=== PATIENT | male | born 1990 | race Caucasian/White ===

== ENCOUNTER 2019-05-03 07:52 | Emergency (ER) | payer BC ==
[2019-05-03 08:04] VITALS: BP 153/92; PULSE 74; RESP 16; TEMP 98.4
--- NOTE | 2019-05-03 08:29 | ED ---
General Adult HPI - General Chief complaint: Skin/Abscess/Foreign Body Stated complaint: abscess under both arms Time Seen by Provider: 05/03/19 08:05 Source: patient, RN notes reviewed Mode of arrival: EMS Limitations: no limitations - History of Present Illness Initial comments: Patient is a pleasant 28-year-old male presenting to the emergency department with concern for infections under his bilateral axilla. Patient has history of this previously associated with hidradenitis. Patient complains of discomfort. Patient states there was a little bit of bleeding. Patient states previously has been given antibiotics for this that this helped. No fevers. No other areas of involvement. Patient states there is no involvement near the waist, th ere is some blood that had dripped on there. - Related Data Previous Rx's Medication Instructions Recorded Sulfamethox-Tmp 800-160Mg [Bactrim 2 each PO Q12HR #40 tab 05/03/19 DS 800-160 mg] Allergies Allergy/AdvReac Type Severity Reaction Status Date / Time No Known Allergies Allergy Verified 05/03/19 08:13 Review of Systems ROS Statement: Those systems with pertinent positive or pertinent negative responses have been documented in the HPI. ROS Other: All systems not noted in ROS Statement are negative. Constitutional: Denies: fever Eyes: Denies: eye pain ENT: Denies: ear pain Respiratory: Denies: cough Cardiovascular: Denies: chest pain Endocrine: Denies: fatigue Gastrointestinal: Denies: abdominal pain Genitourinary: Denies: dysuria Musculoskeletal: Denies: back pain Skin: Reports: as per HPI Neurological: Denies: weakness Past Medical History Past Medical History: No Reported History History of Any Multi-Drug Resistant Organisms: None Reported Past Surgical History: No Surgical Hx Reported Past Psychological History: No Psychological Hx Reported Smoking Status: Light tobacco smoker Past Alcohol Use History: Occasional Past Drug Use History: None Reported General Exam Limitations: no limitations General appearance: alert, in no apparent distress Head exam: Present: normocephalic Eye exam: Present: normal appearance ENT exam: Present: normal exam Neck exam: Present: normal inspection Respiratory exam: Present: normal lung sounds bilaterally Cardiovascular Exam: Present: regular rate, normal rhythm GI/Abdominal exam: Present: soft. Absent: tenderness Extremities exam: Present: other (Bilateral axilla with chronic skin discoloration. No erythema. Some minimal areas of swelling. Mild tenderness. No warmth. No drainable abscess visualized.) Neurological exam: Present: alert Psychiatric exam: Present: normal affect, normal mood Skin exam: Present: other (Bilateral axilla discoloration and mild swelling) Course Vital Signs 05/03/19 07:58 Temperature 98.4 F Pulse Rate 74 Respiratory 16 Rate Blood Pressure 153/92 O2 Sat by Pulse 99 Oximetry Disposition Clinical Impression: Hidradenitis suppurativa Disposition: HOME SELF-CARE Condition: Stable Instructions (If sedation given, give patient instructions): Hidradenitis Suppurativa (ED) Additional Instructions: Keep areas clean and dry. Please follow-up with primary care physician or surgeon or both in the next few days for recheck. Return for increased discomfort, redness, fevers, enlarging pocket that may need drainage, worsening symptoms or other concerns. Your prescription has been sent to [facility]. Prescriptions: Sulfamethox-Tmp 800-160Mg [Bactrim DS 800-160 mg] 2 each PO Q12HR #40 tab Is patient prescribed a controlled substance at d/c from ED?: No Referrals: Margarito Spencer MD [Primary Care Provider] - 1-2 days Time of Disposition: 08:29
== END 2019-05-03 09:02 | disposition home or self-care (01) ==
LOC: EC 07:52
DX: L73.2 Hidradenitis suppurativa (principal); F17.200 Nicotine dependence, unspecified, uncomplicated
CPT/HCPCS: 99283

== ENCOUNTER → 2019-05-26 | Outpatient (CLI) | payer BC ==
[2019-05-26 15:11] LABS: Basophils # (A) 0.1 k/uL (0-0.2); Basophils % (A) 1 %; Eosinophils # (A) 0.2 k/uL (0-0.7); Eosinophils % (A) 3 %; HCT 47.4 % (39.0-53.0); HGB 14.6 gm/dL (13.0-17.5); Lymphocytes # (A) 1.8 k/uL (1.0-4.8); Lymphocytes % (A) 20 %; MCH 27.1 pg (25.0-35.0); MCHC 30.8 g/dL (31.0-37.0); MCV 88.1 fL (80.0-100.0); Mean Platelet Volume 6.5; Monocytes # (A) 0.4 k/uL (0-1.0); Monocytes % (A) 5 %; Neutrophils # (A) 6.2 k/uL (1.3-7.7); Neutrophils % (A) 69 %; Platelet Count 300 k/uL (150-450); RBC 5.38 m/uL (4.30-5.90); RDW 13.7 % (11.5-15.5)
--- NOTE | 2019-05-26 15:16 | XR ---
EXAMINATION TYPE: XR chest 2V DATE OF EXAM: 05/26/2019 COMPARISON: NONE HISTORY: Hidradenitis suppurativa per order. TECHNIQUE: Frontal and lateral views of the chest are obtained. FINDINGS: Low lung volumes with elevated left hemidiaphragm. Slight suboptimal due to large body habi tus. There is no focal air space opacity, pleural effusion, or pneumothorax seen. The cardiac silho uette size is enlarged. The osseous structures are intact. IMPRESSION: Cardiomegaly without acute pulmonary process.
[2019-05-26 18:30] LABS: LDL Cholesterol, Direct 112.1 mg/dL (0.0-129.0)
[2019-05-26 18:34] LABS: African American GFR (CKD) 140.9 (60.0-200.0); Albumin 4.6 g/dL (3.80-4.90); Albumin/Globulin Ratio 1.53 (1.60-3.17); Anion Gap 9.8 mmol/L (4.00-12.00); BUN/Creat Ratio 13.75 Ratio (12.00-20.00); Bilirubin, Conjugated 0.2 mg/dL (0.20-0.40); Bilirubin,Unconjugated 0.3 mg/dL; Calcium 9.4 mg/dL (8.7-10.3); Carbon Dioxide 27.2 mmol/L (21.6-31.8); Chol/HDL Ratio 3.65; LDL Cholesterol,Calculated 91.8 mg/dL (0.0-131.0); Potassium 3.8 mmol/L (3.5-5.5); Total Bilirubin 0.5 mg/dL (0.2-1.2); Total Protein 7.6 g/dL (6.2-8.2); VLDL Calculation 22.2 mg/dL (5.00-40.00)
[2019-05-26 19:44] LABS: Hepatitis B Surface AB- Quant 4.5 mIU/mL; Hepatitis B Surface Antibody Non-Reactive (Non-Reactive); Hepatitis B Surface Antigen Non-Reactive (Non-Reactive); Hepatitis C IgG Antibody Non-Reactive (Non-Reactive)
[2019-05-26 22:44] LABS: Hemoglobin A1C 5.2 % (4.0-6.0)
== END ==
LOC: LABWHC1 13:48
PROVIDERS: ATTEND Dermatology Procedural Dermatology
DX: L73.2 Hidradenitis suppurativa (principal); L83 Acanthosis nigricans; I51.7 Cardiomegaly
CPT/HCPCS: 36415; 71046; 80048; 80061; 80076; 83036; 83721; 85025; 86704; 86706; 86803; 87340

== ENCOUNTER 2021-10-06 04:00 | Emergency (ER) | payer BC, OTHER ==
[2021-10-06 04:08] VITALS: BP 139/83; PULSE 84; RESP 22; TEMP 98.2
--- NOTE | 2021-10-06 05:55 | ED ---
Back Pain HPI - General Chief Complaint: Back Pain/Injury Stated Complaint: Back Pain Time Seen by Provider: 10/06/21 04:12 Source: patient, family, RN notes reviewed Limitations: no limitations - History of Present Illness Initial Comments: This is a 30-year-old male with history of sciatica coming in with nontraumatic back pain. Back pain was worse last night and even worse this morning unable to get out of bed. Back pain is right-sided his back severe he had taken [place] and a Motrin prior to arrival states it did help initially but now seems to be helping pain is improved was able to ambulate. No loss of bowel or bladder no fevers no other complaints MD Complaint: back pain -: hour(s) Similar Symptoms Previously: Yes Place: home Radiation: none Severity: moderate Severity scale (1-10): 7 Quality: sharp, aching Consistency: constant, other (Improving) Improves With: immobilization Worsens With: movement, sitting upright, walking Context: unknown Associated Symptoms: denies other symptoms - Related Data Previous Rx's Medication Instructions Recorded Sulfamethox-Tmp 800-160Mg [Bactrim 2 each PO Q12HR #40 tab 05/03/19 DS 800-160 mg] Allergies Allergy/AdvReac Type Severity Reaction Status Date / Time No Known Allergies Allergy Verified 10/06/21 04:08 Review of Systems ROS Statement: Those systems with pertinent positive or pertinent negative responses have been documented in the HPI. ROS Other: All systems not noted in ROS Statement are negative. Past Medical History Past Medical History: No Reported History History of Any Multi-Drug Resistant Organisms: None Reported Past Surgical History: No Surgical Hx Reported Past Psychological History: No Psychological Hx Reported Smoking Status: Current every day smoker Past Alcohol Use History: Occasional Past Drug Use History: Marijuana General Exam Limitations: no limitations General appearance: alert, in no apparent distress Head exam: Present: atraumatic, normocephalic, normal inspection Eye exam: Present: normal appearance, PERRL, EOMI. Absent: scleral icterus, conjunctival injection, periorbital swelling ENT exam: Present: normal exam, mucous membranes moist Neck exam: Present: normal inspection. Absent: tenderness, meningismus, lymphadenopathy Respiratory exam: Present: normal lung sounds bilaterally. Absent: respiratory distress, wheezes, rales, rhonchi, stridor Cardiovascular Exam: Present: regular rate, normal rhythm, normal heart sounds. Absent: systolic murmur, diastolic murmur, rubs, gallop, clicks GI/Abdominal exam: Present: soft, normal bowel sounds. Absent: distended, tenderness, guarding, rebound, rigid Extremities exam: Present: normal inspection, full ROM, normal capillary refill. Absent: tenderness, pedal edema, joint swelling, calf tenderness Back exam: Present: normal inspection Neurological exam: Present: alert, oriented X3, CN II-XII intact Psychiatric exam: Present: normal affect, normal mood Skin exam: Present: warm, dry, intact, normal color. Absent: rash Course Vital Signs 10/06/21 04:05 Temperature 98.2 F Pulse Rate 84 Respiratory 22 Rate Blood Pressure 139/83 O2 Sat by Pulse 100 Oximetry - Reevaluation(s) Reevaluation #1: 10/06/21 06:11 Medical record is reviewed Reevaluation #2: 10/06/21 06:11 Patient symptoms continue to improve here in the ER Reevaluation #3: 10/06/21 06:11 Patient informed results and questions answered Medical Decision Making - Medical Decision Making 30 male to the emergency department with acute on chronic back pain. Back pain is now resolved here in the ER patient continues to feel improved is able to amply without significant difficulty no neurological complaints and patient can be discharged home - Radiology Data Radiology results: report reviewed (X-ray lumbar spine negative for traumatic or acute disease), image reviewed Disposition Clinical Impression: Strain of lumbar region, Sciatica Disposition: HOME SELF-CARE Condition: Good Instructions (If sedation given, give patient instructions): Acute Low Back Pain (ED) Is patient prescribed a controlled substance at d/c from ED?: No Referrals: None,Stated [Primary Care Provider] - 1-2 days
[2021-10-06] MEDS: CYCLOBENZAPRINE 10 MG TAB PO STA (06:21)
[2021-10-06] MEDS: Acetaminophen-Codeine 300-30mg TAB PO STA (06:21)
[2021-10-06] MEDS: IBUPROFEN 600 MG TAB PO STA (06:21)
[2021-10-06] MEDS: IBUPROFEN 600 MG STARTER PACK 4 TAB BTL PO STA (06:22)
[2021-10-06] MEDS: ACET/COD 300 MG/30 MG STARTER PACK 6 TAB BTL PO STA (06:22)
[2021-10-06] MEDS: CYCLOBENZAPRINE 10MG STARTER 3 TAB BTL PO STA (06:22)
--- NOTE | 2021-10-06 06:50 | XR ---
EXAM: XR Lumbosacral Spine, 2 or 3 Views CLINICAL HISTORY: ITS.REASON XR Reason: pain TECHNIQUE: Frontal and lateral views of the lumbar spine and sacrum. COMPARISON: No relevant prior studies available. FINDINGS: Vertebrae: No fracture or malalignment. Vertebral body heights are preserved. There are mild facet hypertrophic changes best appreciated at the L5-S1 level. Sacrum/coccyx: The sacroiliac joints are unremarkable. No acute fracture. Disc spaces: The disc spaces are preserved. Soft tissues: Unremarkable. IMPRESSION: Mild facet degenerative changes in the lower lumbar spine. Otherwise, unremarkable L-spine x-ray series.
== END 2021-10-06 06:44 | disposition home or self-care (01) ==
LOC: EC 04:00
DX: S39.012A Strain of muscle, fascia and tendon of lower back, initial encounter (principal); M54.30 Sciatica, unspecified side; F17.200 Nicotine dependence, unspecified, uncomplicated; Z72.89 Other problems related to lifestyle; F12.90 Cannabis use, unspecified, uncomplicated
CPT/HCPCS: 72100; 99283

== ENCOUNTER 2022-11-30 19:07 | Emergency (ER) | payer SELFPAY ==
[2022-11-30 19:12] VITALS: BP 133/71; PULSE 72; RESP 16; TEMP 99.2
[2022-11-30] MEDS ORDERED: SODIUM CHLORIDE 0.9% 1,000 ML IV ONE (19:23)
[2022-11-30] MEDS ORDERED: KETOROLAC 15 MG/ML 1 ML VIAL IM STA (19:24)
[2022-11-30 20:27] LABS: Basophils % (A) 1 %; Eosinophils # (A) 0.2 k/uL (0-0.7); Eosinophils % (A) 4 %; HGB 12.5 gm/dL (13.0-17.5); Lymphocytes # (A) 1.5 k/uL (1.0-4.8); Lymphocytes % (A) 33 %; MCH 30.5 pg (25.0-35.0); MCHC 34.8 g/dL (31.0-37.0); MCV 87.6 fL (80.0-100.0); Monocytes # (A) 0.4 k/uL (0-1.0); Monocytes % (A) 8 %; Neutrophils # (A) 2.3 k/uL (1.3-7.7); Neutrophils % (A) 52 %; Platelet Count 187 k/uL (150-450); RBC 4.11 m/uL (4.30-5.90); RDW 12.8 % (11.5-15.5); WBC 4.5 k/uL (3.8-10.6)
[2022-11-30 20:36] LABS: ALT 17 U/L (4-49); AST 25 U/L (17-59); African American GFR (CKD) >90 (>60 ml/min/1.73 sqM); Albumin 3.8 g/dL (3.5-5.0); Alkaline Phosphatase 96 U/L (38-126); Anion Gap 8 mmol/L; Blood Urea Nitrogen 12 mg/dL (9-20); Calcium 8.4 mg/dL (8.4-10.2); Carbon Dioxide 28 mmol/L (22-30); Chloride 102 mmol/L (98-107); Glucose 90 mg/dL (74-99); Non-African American GFR(CKD) >90 (>60 ml/min/1.73 sqM); Potassium 3.5 mmol/L (3.5-5.1); Sodium 138 mmol/L (137-145); Total Bilirubin 0.4 mg/dL (0.2-1.3); Total Protein 7.2 g/dL (6.3-8.2)
--- NOTE | 2022-11-30 20:36 | CT ---
EXAMINATION TYPE: CT abdomen pelvis wo con CT DLP: 1748.4 mGycm, Automated exposure control for dose reduction was used. DATE OF EXAM: 11/30/2022 8:23 PM COMPARISON: Lumbar spine radiographs 10/06/2021 CLINICAL INDICATION:Male, 32 years old with history of urinary retention; Urinary rentention, hematur ia x 2 days. TECHNIQUE: Axial CT of the abdomen and pelvis. Sagittal and coronal reformats were created on a [email or web address] workstation. Contrast used: None. Oral contrast used: without Oral Contrast FINDINGS: LOWER CHEST: Unremarkable ABDOMEN LIVER: Unremarkable GALLBLADDER AND BILE DUCTS: Normal. PANCREAS: Unremarkable. SPLEEN: Splenomegaly, spleen measures 17.9 cm. Small accessory spleen. ADRENAL GLANDS: Unremarkable. KIDNEYS AND URETERS: No evidence of hydronephrosis or renal calculus. The ureters are unremarkable. PELVIS BLADDER: Underdistended, there is circumferential wall thickening and perivesicular fat stranding. REPRODUCTIVE: Unremarkable. ABDOMEN & PELVIS STOMACH AND BOWEL: Stomach and duodenum are unremarkable. No evidence of bowel obstruction. Appendix is normal. PERITONEUM: No evidence of pneumoperitoneum or free fluid. VASCULATURE: No evidence of aortic aneurysm. MUSCULOSKELETAL: No acute osseous abnormalities. Posterior osteophyte of L4-L5 results in up to mild central canal stenosis. LYMPH NODES: Bilateral inguinal adenopathy reference lymph node on the right measures at least 2.0 x 2.8 cm (series 202, image [id number]). SOFT TISSUE/ABDOMINAL WALL: Focal subcutaneous fat stranding without definable fluid collection is no jessi in the anterior pubic soft tissues (series 201, image 141 and series 202, image 41). Superficial skin thickening is noted. Fat stranding does not extend beyond the rectus abdominis muscles. No subcu taneous emphysema. IMPRESSION: 1. Diffuse inflammatory changes of the anterior pubic soft tissues, concerning for cellulitis. No de fined fluid collections to suggest abscess formation within the limits of a noncontrast exam. 2. Bilateral inguinal adenopathy, likely reactive to #1. 3. Splenomegaly. 4. Circumferential bladder wall thickening with perivesicular inflammation, correlate with urinalysis to exclude acute cystitis.
[2022-11-30 21:03] LABS: Appearance,Urine Cloudy (Clear); Bacteria,Urine Rare /hpf; Bilirubin,Urine Negative (Negative); Blood,Urine Large (Negative); Color,Urine Yellow; Glucose,Urine (UA) Negative (Negative); Ketones,Urine Negative (Negative); Leukocyte Esterase,Urine Large (Negative); Mucus,Urine Occasional /hpf; Nitrite,Urine Negative (Negative); Protein,Urine 1+ (Negative); RBC,Urine 11 /hpf (0-5); Specific Gravity,Urine 1.013 (1.001-1.035); Squamous Epithelial Cell,Urine <1 /hpf (0-4); WBC,Urine >182 /hpf (0-5)
--- NOTE | 2022-11-30 21:40 | ED ---
General Adult HPI - General Chief complaint: Urogenital Stated complaint: Blood in urine Time Seen by Provider: 11/30/22 19:15 Source: patient, RN notes reviewed Mode of arrival: ambulatory Limitations: no limitations - History of Present Illness Initial comments: 32-year-old male with no significant past medical history presents to the emergency department with a chief complaint of urinary retention. Patient reports that he has not had a true urinary void in 2 days. Patient reports that he has only been able to "dribble. " He does report seeing some clots in his urine today. He denies any fevers, fatigue, test pain, palpitations, abdominal pain, flank pain. He denies any known new recent sexual contacts. - Related Data Previous Rx's Medication Instructions Recorded Sulfamethox-Tmp 800-160Mg [Bactrim 2 each PO Q12HR #40 tab 05/03/19 DS 800-160 mg] Ciprofloxacin HCl [Cipro] 500 mg PO Q12HR #20 tablet 11/30/22 Allergies Allergy/AdvReac Type Severity Reaction Status Date / Time No Known Allergies Allergy Verified 10/06/21 04:08 Review of Systems ROS Statement: Those systems with pertinent positive or pertinent negative responses have been documented in the HPI. ROS Other: All systems not noted in ROS Statement are negative. Past Medical History Past Medical History: No Reported History History of Any Multi-Drug Resistant Organisms: None Reported Past Surgical History: No Surgical Hx Reported Additional Past Surgical History / Comment(s): skin infection Past Psychological History: No Psychological Hx Reported Smoking Status: Current every day smoker Past Alcohol Use History: Occasional Past Drug Use History: Marijuana General Exam Limitations: no limitations General appearance: alert, in no apparent distress Head exam: Present: atraumatic, normocephalic, normal inspection Eye exam: Present: normal appearance, PERRL, EOMI. Absent: scleral icterus, conjunctival injection, periorbital swelling ENT exam: Present: normal exam, mucous membranes moist Neck exam: Present: normal inspection. Absent: tenderness, meningismus, lymphadenopathy Respiratory exam: Present: normal lung sounds bilaterally. Absent: respiratory distress, wheezes, rales, rhonchi, stridor Cardiovascular Exam: Present: regular rate, normal rhythm, normal heart sounds. Absent: systolic murmur, diastolic murmur, rubs, gallop, clicks GI/Abdominal exam: Present: soft, normal bowel sounds. Absent: distended, tenderness, guarding, rebound, rigid Extremities exam: Present: normal inspection, full ROM, normal capillary refill. Absent: tenderness, pedal edema, joint swelling, calf tenderness Back exam: Present: normal inspection Neurological exam: Present: alert, oriented X3, CN II-XII intact Psychiatric exam: Present: normal affect, normal mood Skin exam: Present: warm, dry, intact, normal color. Absent: rash Course Vital Signs 11/30/22 19:08 Temperature 99.2 F Pulse Rate 72 Respiratory 16 Rate Blood Pressure 133/71 O2 Sat by Pulse 99 Oximetry Medical Decision Making - Medical Decision Making Was pt. sent in by a medical professional or institution (, [facility], FINANCIAL ADVISER, urgent care, hospital, or longterm...) When possible be specific @ -[No] Did you speak to anyone other than the patient for history (EMS, parent, family, police, friend...)? What history was obtained from this source @ -[No] Did you review nursing and triage notes (agree or disagree)? Why? @ -[I reviewed and agree with nursing and triage notes] Were old charts reviewed (outside hosp., previous admission, EMS record, old EKG, old radiological studies, urgent care reports/EKG's, longterm records)? Report findings @ -[No old charts were reviewed] Differential Diagnosis (chest pain, altered mental status, abdominal pain women, abdominal pain men, vaginal bleeding, weakness, fever, dyspnea, syncope, headache, dizziness, GI bleed, back pain, seizure, CVA, palpatations, mental health, musculoskeletal)? @ -[not applicable] EKG interpreted by me (3pts min.). @ -[As above] X-rays interpreted by me (1pt min.). @ -[None done] CT interpreted by me (1pt min.). @ -[None done] U/S interpreted by me (1pt. min.). @ -[None done] What testing was considered but not performed or refused? (CT, X-rays, U/S, labs)? Why? @ -[None] What meds were considered but not given or refused? Why? @ -[None] Did you discuss the management of the patient with other professionals (professionals i.e. , PA, FINANCIAL ADVISER, lab, RT, psych nurse, manager social work, ultrasound coordinator, teacher, airline pilot/first officer, casework specialist)? Give summary @ -[No] Was smoking cessation discussed for >3mins.? @ -[No] Was critical care preformed (if so, how long)? @ -[No] Were there social determinants of health that impacted care today? How? (Homelessness, low income, unemployed, alcoholism, drug addiction, transportation, low edu. Level, literacy, decrease access to med. care, skilled nursing, rehab)? @ -[No] Was there de-escalation of care discussed even if they declined (Discuss DNR or withdrawal of care, Hospice)? DNR status @ -[No] What co-morbidities impacted this encounter? (DM, HTN, Smoking, COPD, CAD, Cancer, CVA, ARF, Chemo, Hep., AIDS, mental health diagnosis, sleep apnea, morbid obesity)? @ -[None] Was patient admitted / discharged? Hospital course, mention meds given and route, prescriptions, significant lab abnormalities, going to OR and other pertinent info. @ -Discharged. This is a 32-year-old male who presents the emergency department with urinary retention. Patient had a thorough history and physical exam performed physical exam essentially unremarkable. Heart rate regular rate and rhythm, lungs clear to auscultation bilaterally abdomen is soft and non- tender. He should had lab work and imaging performed: She reports diffuse inflammatory changes to the anterior pubic soft tissues with bilateral inguinal adenopathy There is circumferential bladder wall thickening and perivesicular inflammation Labs remarkable for WBC 4.5, hemoglobin 12.5 BMP unremarkable BUN 12, creatinine 0.65, Urinalysis reveals 1+ protein, large amount of blood, large amount of leukocyte Estrace, greater than 182 wbc's white blood cell clumps I discussed the results in detail with the patient verbalized understanding and all questions were addressed. Return precautions were discussed at length. Patient was discharged in stable condition. She was encouraged to follow up with her PCP in 1-2 days. Comes with CINDY Coleman who agrees with plan of care Undiagnosed new problem with uncertain prognosis? @ -[No] Drug Therapy requiring intensive monitoring for toxicity (Heparin, Nitro, Insulin, Cardizem)? @ -[No] Were any procedures done? @ -[No] Diagnosis/symptom? @ -Cystitis Acute, or Chronic, or Acute on Chronic? @ -acute Uncomplicated (without systemic symptoms) or Complicated (systemic symptoms)? @ -uncomplicated Side effects of treatment? @ -[No] Exacerbation, Progression, or Severe Exacerbation? @ -[No] Poses a threat to life or bodily function? How? (Chest pain, [place], [place], pneumonia, PE, COPD, DKA, ARF, appy, cholecystitis, CVA, Diverticulitis, Homicidal, Suicidal, threat to staff... and all critical care pts) @ -low likelihood - Lab Data Result diagrams: 11/30/22 20:07 11/30/22 20:07 Lab Results 11/30/22 11/30/22 11/30/22 Range/Units 20: 20:07 20:37 WBC 4.5 (3.8-10.6) k/uL RBC 4.11 L (4.30-5.90) m/uL Hgb 12.5 L (13.0-17.5) gm/dL Hct 36.0 L (39.0-53.0) % MCV 87.6 (80.0-100.0) fL MCH 30.5 (25.0-35.0) pg MCHC 34.8 (31.0-37.0) g/dL RDW 12.8 (11.5-15.5) % Plt Count 187 (150-450) k/uL MPV 8.0 Neutrophils % 52 % Lymphocytes % 33 % Monocytes % 8 % Eosinophils % 4 % Basophils % 1 % Neutrophils # 2.3 (1.3-7.7) k/uL Lymphocytes # 1.5 (1.0-4.8) k/uL Monocytes # 0.4 (0-1.0) k/uL Eosinophils # 0.2 (0-0.7) k/uL Basophils # 0.0 (0-0.2) k/uL Sodium 138 (137-145) mmol/L Potassium 3.5 (3.5-5.1) mmol/L Chloride 102 (98-107) mmol/L Carbon Dioxide 28 (22-30) mmol/L Anion Gap 8 mmol/L BUN 12 (9-20) mg/dL Creatinine 0.65 L (0.66-1.25) mg/dL Est GFR (CKD-EPI)AfAm >90 (>60 ml/min/1.73 sqM) Est GFR (CKD-EPI)NonAf >90 (>60 ml/min/1.73 sqM) Glucose 90 (74-99) mg/dL Calcium 8.4 (8.4-10.2) mg/dL Total Bilirubin 0.4 (0.2-1.3) mg/dL AST 25 (17-59) U/L ALT 17 (4-49) U/L Alkaline Phosphatase 96 (38-126) U/L Total Protein 7.2 (6.3-8.2) g/dL Albumin 3.8 (3.5-5.0) g/dL Urine Color Yellow Urine Appearance Cloudy (Clear) Urine pH 6.0 (5.0-8.0) Ur Specific [place] 1.013 (1.001-1.035) Urine Protein 1+ H (Negative) Urine Glucose (UA) Negative (Negative) Urine Ketones Negative (Negative) Urine Blood Large H (Negative) Urine Nitrite Negative (Negative) Urine Bilirubin Negative (Negative) Urine Urobilinogen 3.0 (<2.0) mg/dL Ur Leukocyte Esterase Large H (Negative) Urine RBC 11 H (0-5) /hpf Urine WBC >182 H (0-5) /hpf Urine WBC Clumps Rare H (None) /hpf Ur Squamous Epith Cells <1 (0-4) /hpf Urine Bacteria Rare H (None) /hpf Urine Mucus Occasional H (None) /hpf Disposition Clinical Impression: Cystitis Disposition: HOME SELF-CARE Instructions (If sedation given, give patient instructions): Urinary Tract Infection in Men (ED) Additional Instructions: Please return to the nearest emergency department symptoms worsen or persist Prescriptions: Ciprofloxacin HCl [Cipro] 500 mg PO Q12HR #20 tablet Is patient prescribed a controlled substance at d/c from ED?: No Referrals: None,Stated [Primary Care Provider] - 1-2 days Mau Ross MD [STAFF PHYSICIAN] - 1-2 days Time of Disposition: 21:39
== END 2022-11-30 21:49 | disposition home or self-care (01) ==
LOC: EC 19:07
DX: N30.91 Cystitis, unspecified with hematuria (principal); F17.200 Nicotine dependence, unspecified, uncomplicated; F12.90 Cannabis use, unspecified, uncomplicated
CPT/HCPCS: 51798; 36415; 80053; 85025; 81001; 74176; 99284; 96360; 96372; J1885

== ENCOUNTER → 2023-08-26 | Outpatient (CLI) | payer BC ==
[2023-08-26 14:51] LABS: Basophils # (A) 0.06 X 10*3/uL (0.00-0.10); Basophils % (A) 0.8 %; Eosinophils # (A) 0.23 X 10*3/uL (0.04-0.35); Eosinophils % (A) 3.2 %; HCT 36.5 % (39.6-50.0); HGB 11.8 g/dL (13.0-17.0); Lymphocytes # (A) 1.67 X 10*3/uL (0.90-5.00); Lymphocytes % (A) 22.9 %; MCH 27.8 pg (27.0-32.0); MCHC 32.3 g/dL (32.0-37.0); MCV 86.1 FL (80.0-97.0); Mean Platelet Volume 9.8 FL (9.5-12.2); Monocytes # (A) 0.52 X 10*3/uL (0.20-1.00); Monocytes % (A) 7.1 %; NRBC Per 100 WBC 0 X 10*3/uL (0.00-0.01); Neutrophils % (A) 65.7 %; Platelet Count 311 X 10*3/uL (140-440); RBC 4.24 X 10*6/uL (4.40-5.60); RDW 12.9 % (11.5-14.5)
[2023-08-26 18:48] LABS: ALT 7 U/L (10-49); AST 15 U/L (14-35)
[2023-08-26 19:23] LABS: Hepatitis B Surface AB- Quant 3.5 mIU/mL; Hepatitis B Surface Antigen Nonreactive; Hepatitis C IgG Antibody Nonreactive
== END | disposition home or self-care (01) ==
LOC: LABWHC1 11:52
PROVIDERS: ATTEND Student in an Organized Health Care Education/Training Program
DX: L73.2 Hidradenitis suppurativa (principal); Z79.899 Other long term (current) drug therapy
CPT/HCPCS: 36415; 82565; 84450; 84460; 85025; 86480; 86704; 86706; 86803; 87340

== ENCOUNTER 2024-05-21 17:29 | Emergency (ER) | payer BC ==
[2024-05-21 18:03] VITALS: TEMP 98.1
--- NOTE | 2024-05-21 18:17 | ED ---
Dizziness HPI - General Chief Complaint: Dizziness Stated Complaint: Dizziness Time Seen by Provider: 05/21/24 18:14 Source: patient, RN notes reviewed Mode of arrival: ambulatory Limitations: no limitations - History of Present Illness Initial Comments: 33-year-old male presented to ER with a chief complaint dizziness. He states has been intermittent for past couple months. He states today while exiting his truck at work he started to "see stars, have blurry vision, ringing in ears and tingling to bilateral upper extremities. He reports palpitations at that time but denies any chest pain or shortness of breath. He states this is the worst episode he has had in the past, much with brought him to the ER. He no history of vertigo or other issues. He does report a history of hidradenitis suppurativa. He has not taken anything for his symptoms at that time. Patient reports he did eat an Egg McMuffin and consumed to a Gatorade 0 prior to this episode. No other complaints at this time. Patient does state while taking deep breaths during auscultation he started to feel lightheaded. - Related Data Previous Rx's Medication Instructions Recorded Sulfamethox-Tmp 800-160Mg [Bactrim 2 each PO Q12HR #40 tab 05/03/19 DS 800-160 mg] Ciprofloxacin HCl [Cipro] 500 mg PO Q12HR #20 tablet 11/30/22 Allergies Allergy/AdvReac Type Severity Reaction Status Date / Time No Known Allergies Allergy Verified 10/06/21 04:08 Review of Systems ROS Statement: Those systems with pertinent positive or pertinent negative responses have been documented in the HPI. ROS Other: All systems not noted in ROS Statement are negative. Past Medical History Past Medical History: No Reported History Additional Past Medical History / Comment(s): Hidradenitis suppurativa History of Any Multi-Drug Resistant Organisms: None Reported Past Surgical History: No Surgical Hx Reported Additional Past Surgical History / Comment(s): skin infection Past Psychological History: No Psychological Hx Reported Smoking Status: Vaper Past Alcohol Use History: Occasional Past Drug Use History: Marijuana General Exam Limitations: no limitations General appearance: alert, in no apparent distress Eye exam: Present: normal appearance, PERRL, EOMI. Absent: scleral icterus, conjunctival injection, periorbital swelling Pupils: Present: normal accommodation ENT exam: Present: normal exam, normal oropharynx, mucous membranes moist, TM's normal bilaterally Neck exam: Present: normal inspection. Absent: tenderness, meningismus, lymphadenopathy Respiratory exam: Present: normal lung sounds bilaterally. Absent: respiratory distress, wheezes, rales, rhonchi, stridor Cardiovascular Exam: Present: regular rate, normal rhythm, normal heart sounds. Absent: systolic murmur, diastolic murmur, rubs, gallop, clicks Extremities exam: Present: normal inspection, full ROM, normal capillary refill. Absent: tenderness, pedal edema, joint swelling, calf tenderness Neurological exam: Present: alert, oriented X3, CN II-XII intact Skin exam: Present: warm, dry, intact, normal color. Absent: rash Course Vital Signs 05/21/24 05/21/24 05/21/24 17:56 19:19 22:10 Temperature 98.1 F Pulse Rate 68 69 Pulse Rate [ 68 Pulse Oximetery ] Respiratory 18 16 Rate Blood Pressure 105/65 111/65 O2 Sat by Pulse 99 100 Oximetry Medical Decision Making - Medical Decision Making Was pt. sent in by a medical professional or institution (, PA, ICU NURSE, urgent care, hospital, or care home...) When possible be specific @ -No Did you speak to anyone other than the patient for history (EMS, parent, family, police, friend...)? What history was obtained from this source @ -No Did you review nursing and triage notes (agree or disagree)? Why? @ -I reviewed and agree with nursing and triage notes Were old charts reviewed (outside hosp., previous admission, EMS record, old EKG, old radiological studies, urgent care reports/EKG's, care home records)? Report findings @ -No old charts were reviewed Differential Diagnosis (chest pain, altered mental status, abdominal pain women, abdominal pain men, vaginal bleeding, weakness, fever, dyspnea, syncope, headache, dizziness, GI bleed, back pain, seizure, CVA, palpatations, mental health, musculoskeletal)? @ -differential Dizziness:Benign paroxysmal positional Vertigo, Meniere's disease, otitis media, acoustic neuroma, vertebrobasilar insufficiency, cerebellar stroke, encephalitis, hypovolemic, arrhythmia, coronary artery syndrome, anemia, this is not meant to be an all-inclusive list EKG interpreted by me (3pts min.). @ -As above X-rays interpreted by me (1pt min.). @ -Chest x-ray negative for acute cardiopulmonary process. CT interpreted by me (1pt min.). @ -None done U/S interpreted by me (1pt. min.). @ -None done What testing was considered but not performed or refused? (CT, X-rays, U/S, la bs)? Why? @ -None What meds were considered but not given or refused? Why? @ -None Did you discuss the management of the patient with other professionals (professionals i.e. , PA, ICU NURSE, lab, RT, psych nurse, social insurance specialist, mother helper, teacher, credit officer, case loader operator)? Give summary @ -No Was smoking cessation discussed for >3mins.? @ -No Was critical care preformed (if so, how long)? @ -No Were there social determinants of health that impacted care today? How? (Homelessness, low income, unemployed, alcoholism, drug addiction, transportation, low edu. Level, literacy, decrease access to med. care, [facility], rehab)? @ -Patient does not have a primary care physician Was there de-escalation of care discussed even if they declined (Discuss DNR or withdrawal of care, Hospice)? DNR status @ -No What co-morbidities impacted this encounter? (DM, HTN, Smoking, COPD, CAD, Cancer, CVA, ARF, Chemo, Hep., AIDS, mental health diagnosis, sleep apnea, morbid obesity)? @ -Hidradenitis suppurativa, obese Was patient admitted / discharged? Hospital course, mention meds given and route, prescriptions, significant lab abnormalities, going to OR and other pertinent info. @ -Discharge. 33 year old male presenting to the ER with a chief complaint of dizziness. History and physical exam completed. Vitals within normal limits. Patient in no signs of acute distress. Exam benign. Laboratory studies obtained showing a microcytic normochromic anemia of 9.7. D-dimer 0.48 and troponin undetectable. CMP unremarkable. Urinalysis showing large leukocyte esterases with 15 WBCs. Patient is not complaining of urinary complaints. Antibiotics will be held at this time. Chest x-ray interpreted by me negative for acute cardiopulmonary process. EKG showing a sinus rhythm with no acute evidence of infarct or ischemia. Patient received 1 L IV fluids in the ER. Dizziness may be related to anemia but source of anemia is currently unidentified. I advised patient to follow-up with PCP within the next week for further evaluation of dizziness and anemia. Patient denying any melena, hematochezia, hematic emesis. He does report his boils from HS constantly leak of bloody fluid. This may also be contributing. I also advised patient to follow-up with dermatology for further evaluation and treatment of at bedtime. Strict return parameters discussed. Patient discharged in stable condition. Patient verbally expressed understanding and agreement with care plan. Case discussed with ED attending, Dr. Soto. Undiagnosed new problem with uncertain prognosis? @ -No Drug Therapy requiring intensive monitoring for toxicity (Heparin, Nitro, Insulin, Cardizem)? @ -No Were any procedures done? @ -No Diagnosis/symptom? @ -Anemia/dizziness Acute, or Chronic, or Acute on Chronic? @ -Acute Uncomplicated (without systemic symptoms) or Complicated (systemic symptoms)? @ -Uncomplicated Side effects of treatment? @ -No Exacerbation, Progression, or Severe Exacerbation? @ -No Poses a threat to life or bodily function? How? (Chest pain, USA, MD, pneumonia, PE, COPD, DKA, ARF, appy, cholecystitis, CVA, Diverticulitis, Homicidal, Suicidal, threat to staff... and all critical care pts) @ -No - Lab Data Result diagrams: 05/21/24 18:59 05/21/24 18:59 Lab Results 05/21/24 05/21/24 05/21/24 Range/Units 18:59 18:59 18:59 WBC 8.9 (3.8-10.6) k/uL RBC 3.81 L (4.30-5.90) m/uL Hgb 9.7 L (13.0-17.5) gm/dL Hct 30.3 L (39.0-53.0) % MCV 79.6 L (80.0-100.0) fL MCH 25.4 (25.0-35.0) pg MCHC 31.9 (31.0-37.0) g/dL RDW 14.1 (11.5-15.5) % Plt Count 403 (150-450) k/uL MPV 7.3 Neutrophils % 69 % Lymphocytes % 20 % Monocytes % 6 % Eosinophils % 2 % Basophils % 0 % Neutrophils # 6.1 (1.3-7.7) k/uL Lymphocytes # 1.8 (1.0-4.8) k/uL Monocytes # 0.6 (0-1.0) k/uL Eosinophils # 0.2 (0-0.7) k/uL Basophils # 0.0 (0-0.2) k/uL Hypochromasia Slight PT 11.1 (10.0-12.5) sec INR 1.0 (<1.2) APTT 26.4 (22.0-30.0) sec D-Dimer 0.48 (<0.60) mg/L FEU Sodium 137 (137-145) mmol/L Potassium 4.2 (3.5-5.1) mmol/L Chloride 100 (98-107) mmol/L Carbon Dioxide 30 (22-30) mmol/L Anion Gap 7 mmol/L BUN 10 (9-20) mg/dL Creatinine 0.70 (0.66-1.25) mg/dL Est GFR (CKD-EPI)AfAm >90 (>60 ml/min/1.73 sqM) Est GFR (CKD-EPI)NonAf >90 (>60 ml/min/1.73 sqM) Glucose 80 (74-99) mg/dL Calcium 8.9 (8.4-10.2) mg/dL Total Bilirubin 0.4 (0.2-1.3) mg/dL AST 18 (17-59) U/L ALT 9 (4-49) U/L Alkaline Phosphatase 102 (38-126) U/L Troponin I (0.000-0.034) ng/mL Total Protein 7.8 (6.3-8.2) g/dL Albumin 3.6 (3.5-5.0) g/dL Urine Color Urine Appearance (Clear) Urine pH (5.0-8.0) Ur Specific [place] (1.001-1.035) Urine Protein (Negative) Urine Glucose (UA) (Negative) Urine Ketones (Negative) Urine Blood (Negative) Urine Nitrite (Negative) Urine Bilirubin (Negative) Urine Urobilinogen (<2.0) mg/dL Ur Leukocyte Esterase (Negative) Urine RBC (0-5) /hpf Urine WBC (0-5) /hpf Ur Squamous Epith Cells (0-4) /hpf Urine Mucus (None) /hpf 05/21/24 05/21/24 Range/Units 18:59 19:50 WBC (3.8-10.6) k/uL RBC (4.30-5.90) m/uL Hgb (13.0-17.5) gm/dL Hct (39.0-53.0) % MCV (80.0-100.0) fL MCH (25.0-35.0) pg MCHC (31.0-37.0) g/dL RDW (11.5-15.5) % Plt Count (150-450) k/uL MPV Neutrophils % % Lymphocytes % % Monocytes % % Eosinophils % % Basophils % % Neutrophils # (1.3-7.7) k/uL Lymphocytes # (1.0-4.8) k/uL Monocytes # (0-1.0) k/uL Eosinophils # (0-0.7) k/uL Basophils # (0-0.2) k/uL Hypochromasia PT (10.0-12.5) sec INR (<1.2) APTT (22.0-30.0) sec D-Dimer (<0.60) mg/L FEU Sodium (137-145) mmol/L Potassium (3.5-5.1) mmol/L Chloride (98-107) mmol/L Carbon Dioxide (22-30) mmol/L Anion Gap mmol/L BUN (9-20) mg/dL Creatinine (0.66-1.25) mg/dL Est GFR (CKD-EPI)AfAm (>60 ml/min/1.73 sqM) Est GFR (CKD-EPI)NonAf (>60 ml/min/1.73 sqM) Glucose (74-99) mg/dL Calcium (8.4-10.2) mg/dL Total Bilirubin (0.2-1.3) mg/dL AST (17-59) U/L ALT (4-49) U/L Alkaline Phosphatase (38-126) U/L Troponin I <0.012 (0.000-0.034) ng/mL Total Protein (6.3-8.2) g/dL Albumin (3.5-5.0) g/dL Urine Color Yellow Urine Appearance Cloudy (Clear) Urine pH 6.0 (5.0-8.0) Ur Specific [place] 1.023 (1.001-1.035) Urine Protein Trace H (Negative) Urine Glucose (UA) Negative (Negative) Urine Ketones Negative (Negative) Urine Blood Small H (Negative) Urine Nitrite Negative (Negative) Urine Bilirubin Negative (Negative) Urine Urobilinogen <2.0 (<2.0) mg/dL Ur Leukocyte Esterase Large H (Negative) Urine RBC 1 (0-5) /hpf Urine WBC 15 H (0-5) /hpf Ur Squamous Epith Cells 3 (0-4) /hpf Urine Mucus Moderate H (None) /hpf - EKG Data -: EKG Interpreted by Me EKG Comments: EKG taken at 18: 54 EKG showing a normal sinus rhythm no acute ST segment abnormalities. Inverted T waves in lead III. Ventricular rate 61, OH 170, QRS duration 118, QT/QTc 385/388. - Radiology Data Radiology results: report reviewed, image reviewed Disposition Clinical Impression: Anemia, Dizziness Disposition: HOME SELF-CARE Condition: Stable Instructions (If sedation given, give patient instructions): Dizziness (ED), Anemia (ED) Additional Instructions: Please follow-up with PCP in the next 1 to 2 weeks. I also recommend close follow-up with dermatology. Return to the ER for any new or worsening concerns. Is patient prescribed a controlled substance at d/c from ED?: No Referrals: None,Stated [Primary Care Provider] - 1-2 days Suzy Aguilar MD [STAFF PHYSICIAN] - 1-2 days Forms: Area PCPs Time of Disposition: 21:50
[2024-05-21] MEDS: SODIUM CHLORIDE 0.9% 1,000 ML IV STA (19:31)
[2024-05-21 20:34] LABS: Basophils % (A) 0 %; Eosinophils # (A) 0.2 k/uL (0-0.7); Eosinophils % (A) 2 %; HCT 30.3 % (39.0-53.0); HGB 9.7 gm/dL (13.0-17.5); Hypochromasia Slight; Lymphocytes # (A) 1.8 k/uL (1.0-4.8); Lymphocytes % (A) 20 %; MCH 25.4 pg (25.0-35.0); MCHC 31.9 g/dL (31.0-37.0); MCV 79.6 fL (80.0-100.0); Mean Platelet Volume 7.3; Monocytes # (A) 0.6 k/uL (0-1.0); Monocytes % (A) 6 %; Neutrophils # (A) 6.1 k/uL (1.3-7.7); Neutrophils % (A) 69 %; Platelet Count 403 k/uL (150-450); RBC 3.81 m/uL (4.30-5.90); RDW 14.1 % (11.5-15.5); WBC 8.9 k/uL (3.8-10.6)
[2024-05-21 20:44] LABS: Appearance,Urine Cloudy (Clear); Bilirubin,Urine Negative (Negative); Blood,Urine Small (Negative); Color,Urine Yellow; Glucose,Urine (UA) Negative (Negative); Ketones,Urine Negative (Negative); Leukocyte Esterase,Urine Large (Negative); Mucus,Urine Moderate /hpf; Nitrite,Urine Negative (Negative); Protein,Urine Trace (Negative); RBC,Urine 1 /hpf (0-5); Specific Gravity,Urine 1.023 (1.001-1.035); Squamous Epithelial Cell,Urine 3 /hpf (0-4); Urobilinogen,Urine <2.0 mg/dL (<2.0); WBC,Urine 15 /hpf (0-5)
[2024-05-21 20:53] LABS: ALT 9 U/L (4-49); AST 18 U/L (17-59); African American GFR (CKD) >90 (>60 ml/min/1.73 sqM); Albumin 3.6 g/dL (3.5-5.0); Alkaline Phosphatase 102 U/L (38-126); Anion Gap 7 mmol/L; Blood Urea Nitrogen 10 mg/dL (9-20); Calcium 8.9 mg/dL (8.4-10.2); Carbon Dioxide 30 mmol/L (22-30); Chloride 100 mmol/L (98-107); Glucose 80 mg/dL (74-99); Non-African American GFR(CKD) >90 (>60 ml/min/1.73 sqM); Potassium 4.2 mmol/L (3.5-5.1); Sodium 137 mmol/L (137-145); Total Bilirubin 0.4 mg/dL (0.2-1.3); Total Protein 7.8 g/dL (6.3-8.2)
[2024-05-21 21:02] LABS: Partial Thromboplastin Time 26.4 sec (22.0-30.0); Prothrombin Time 11.1 sec (10.0-12.5)
--- NOTE | 2024-05-21 21:24 | XR ---
EXAMINATION TYPE: XR chest 2V DATE OF EXAM: 05/21/2024 7:45 PM CLINICAL INDICATION:Male, 33 years old with history of dizziness; [facility] COMPARISON: None TECHNIQUE: XR chest 2V. Frontal and lateral views of the chest.. FINDINGS: Lines/Tubes/Devices: No indwelling lines are seen. Heart/mediastinum: Heart size is normal. Mediastinum appears normal. Pulmonary vascularity: Not increased, Lungs/Pleura: There is no evidence of pleural effusion, focal consolidation, or pneumothorax. Musculoskeletal: No acute osseous abnormality demonstrated in the limits of the exam. Other findings: None. IMPRESSION: No acute cardiopulmonary abnormality. [facility], , 05/21/2024 9:22 PM
[2024-05-21 22:25] VITALS: BP 111/65; PULSE 69; RESP 16
== END 2024-05-21 22:10 | disposition home or self-care (01) ==
LOC: EC 17:29
CPT/HCPCS: 36415; 71046; 80053; 81001; 84484; 85025; 85379; 85610; 85730; 93005; 96360; 96361; 99284

== ENCOUNTER 2024-10-02 21:55 | Emergency (ER) | payer BC ==
[2024-10-02 22:06] VITALS: BP 137/79; PULSE 77; RESP 18; TEMP 97.8
--- NOTE | 2024-10-02 22:25 | ED ---
Skin/Abscess/FB HPI - General Chief complaint: Skin/Abscess/Foreign Body Stated complaint: Boils on legs Time Seen by Provider: 10/02/24 22:19 Source: patient, RN notes reviewed Mode of arrival: ambulatory Limitations: no limitations - History of Present Illness Initial comments: 33-year-old male with history of hidradenitis suppurativa presenting to the ER for boil on right inner thigh x 1 month. States it has been progressively growing in size and discomfort over the past month. He also states he has boils on his right buttocks and left axillary area consistent with previous vaginitis suppurativa flares. He was seen by his primary care doctor for the boil on the right inner thigh who sent him to a surgeon for evaluation. Appointment with [facility] is on October 14. He states he is having difficulty waiting until the due to the pain and discomfort is causing him. States he has occasional subjective chills but denies fever, nausea, vomiting. No other health conditions. - Related Data Previous Rx's Medication Instructions Recorded Sulfamethox-Tmp 800-160Mg [Bactrim 2 each PO Q12HR #40 tab 05/03/19 DS 800-160 mg] Ciprofloxacin HCl [Cipro] 500 mg PO Q12HR #20 tablet 11/30/22 Sulfamethox-Tmp 800-160Mg [Bactrim 1 each PO Q12HR #20 tab 10/02/24 Ds] Allergies Allergy/AdvReac Type Severity Reaction Status Date / Time No Known Allergies Allergy Verified 10/02/24 22:07 Review of Systems ROS Statement: Those systems with pertinent positive or pertinent negative responses have been documented in the HPI. ROS Other: All systems not noted in ROS Statement are negative. Past Medical History Past Medical History: No Reported History Additional Past Medical History / Comment(s): Hidradenitis suppurativa History of Any Multi-Drug Resistant Organisms: None Reported Past Surgical History: No Surgical Hx Reported Additional Past Surgical History / Comment(s): skin infection Past Psychological History: No Psychological Hx Reported Smoking Status: Vaper Past Alcohol Use History: Occasional Past Drug Use History: Marijuana General Exam Limitations: no limitations General appearance: alert, in no apparent distress Head exam: Present: atraumatic, normocephalic, normal inspection GI/Abdominal exam: Present: soft, normal bowel sounds. Absent: distended, tenderness, guarding, rebound, rigid Neurological exam: Present: alert, oriented X3 Psychiatric exam: Present: normal affect, normal mood Skin exam: Present: warm, dry, intact, normal color, other (Lumpy, erythematous mass present in right proximal inner thigh approximately the size of a small basketball. There are multiple areas of active drainage. Diffuse scarring present on bilateral inguinal area and bilateral axillary areas due to previous abscesses.) Course Vital Signs 10/02/24 22:03 Temperature 97.8 F Pulse Rate 77 Respiratory 18 Rate Blood Pressure 137/79 O2 Sat by Pulse 100 Oximetry Medical Decision Making - Medical Decision Making Was pt. sent in by a medical professional or institution (, KASSANDRA, ANIMAL SHELTER CLERK, urgent care, hospital, or long-term...) When possible be specific @ -No Did you speak to anyone other than the patient for history (EMS, parent, family, police, friend...)? What history was obtained from this source @ -No Did you review nursing and triage notes (agree or disagree)? Why? @ -I reviewed and agree with nursing and triage notes Were old charts reviewed (outside hosp., previous admission, EMS record, old EKG, old radiological studies, urgent care reports/EKG's, long-term records)? Report findings @ -No old charts were reviewed Differential Diagnosis (chest pain, altered mental status, abdominal pain women, abdominal pain men, vaginal bleeding, weakness, fever, dyspnea, syncope, headache, dizziness, GI bleed, back pain, seizure, CVA, palpatations, mental health, musculoskeletal)? @ -Cellulitis, abscess, hidradenitis suppurativa, sepsis EKG interpreted by me (3pts min.). @ -None X-rays interpreted by me (1pt min.). @ -None done CT interpreted by me (1pt min.). @ -None done U/S interpreted by me (1pt. min.). @ -None done What testing was considered but not performed or refused? (CT, X-rays, U/S, labs)? Why? @ -None What meds were considered but not given or refused? Why? @ -None Did you discuss the management of the patient with other professionals (professionals i.e. KASSANDRA Marr, ANIMAL SHELTER CLERK, lab, RT, psych nurse, social services, visual training aide, teacher, media liaison officer, gearcase assembler)? Give summary @ -No Was smoking cessation discussed for >3mins.? @ -No Was critical care preformed (if so, how long)? @ -No Were there social determinants of health that impacted care today? How? (Homelessness, low income, unemployed, alcoholism, drug addiction, transportation, low edu. Level, literacy, decrease access to med. care, long-term, rehab)? @ -No Was there de-escalation of care discussed even if they declined (Discuss DNR or withdrawal of care, Hospice)? DNR status @ -No What co-morbidities impacted this encounter? (DM, HTN, Smoking, COPD, CAD, Cancer, CVA, ARF, Chemo, Hep., AIDS, mental health diagnosis, sleep apnea, morb id obesity)? @ -None Was patient admitted / discharged? Hospital course, mention meds given and rout e, prescriptions, significant lab abnormalities, going to OR and other pertinent info. @ -Discharge. 33-year-old male with history of hidradenitis suppurativa presenting for right groin boil x 1 month. He has upcoming appointment with surgeon for on October 14 however pain is increasing. Vital signs within acceptable limits. No acute distress, appears nontoxic. Physical examination remarkable for indurated mass to right proximal thigh. Decision is made to not incise due to abscess is actively draining. Lab work remarkable for CRP 6.2, hemoglobin 9.2 however comparable to baseline. White blood cell count stable at 7.2. Discussed diagnosis of hidradenitis suppurativa. Will provide course of antibiotics. Advised to follow-up with surgeon for upcoming appointment. Advised to quit smoking as hidradenitis suppurativa is directly related to smoking. Appropriate return precautions and follow-up care discussed. Case was discussed with my ED attending Dr. Diaz. Undiagnosed new problem with uncertain prognosis? @ -No Drug Therapy requiring intensive monitoring for toxicity (Heparin, Nitro, Insulin, Cardizem)? @ -No Were any procedures done? @ -No Diagnosis/symptom? @ -Hidradenitis suppurativa Acute, or Chronic, or Acute on Chronic? @ -Acute Uncomplicated (without systemic symptoms) or Complicated (systemic symptoms)? @ -Uncomplicated Side effects of treatment? @ -No Exacerbation, Progression, or Severe Exacerbation? @ -No Poses a threat to life or bodily function? How? (Chest pain, USA, [place], pneumonia, PE, COPD, DKA, ARF, appy, cholecystitis, CVA, Diverticulitis, Homicidal, Suicidal, threat to staff... and all critical care pts) @ -No - Lab Data Result diagrams: 10/02/24 22:42 10/02/24 22:42 Lab Results 10/02/24 10/02/24 10/02/24 Range/Units 22:42 22:42 22:42 WBC 7.2 (3.8-10.6) k/uL RBC 3.72 L (4.30-5.90) m/uL Hgb 9.2 L (13.0-17.5) gm/dL Hct 29.1 L (39.0-53.0) % MCV 78.2 L (80.0-100.0) fL MCH 24.8 L (25.0-35.0) pg MCHC 31.7 (31.0-37.0) g/dL RDW 14.8 (11.5-15.5) % Plt Count 372 (150-450) k/uL MPV 7.1 Neutrophils % 64 % Lymphocytes % 27 % Monocytes % 4 % Eosinophils % 3 % Basophils % 0 % Neutrophils # 4.6 (1.3-7.7) k/uL Lymphocytes # 2.0 (1.0-4.8) k/uL Monocytes # 0.3 (0-1.0) k/uL Eosinophils # 0.2 (0-0.7) k/uL Basophils # 0.0 (0-0.2) k/uL Hypochromasia Slight Sodium 135 L (137-145) mmol/L Potassium 4.0 (3.5-5.1) mmol/L Chloride 101 (98-107) mmol/L Carbon Dioxide 25 (22-30) mmol/L Anion Gap 9 mmol/L BUN 12 (9-20) mg/dL Creatinine 0.70 (0.66-1.25) mg/dL Est GFR (CKD-EPI)AfAm >90 (>60 ml/min/1.73 sqM) Est GFR (CKD-EPI)NonAf >90 (>60 ml/min/1.73 sqM) Glucose 110 H (74-99) mg/dL Plasma Lactic Acid Wai 1.4 (0.7-2.0) mmol/L Calcium 8.3 L (8.4-10.2) mg/dL Total Bilirubin 0.5 (0.2-1.3) mg/dL AST 23 (17-59) U/L ALT 10 (4-49) U/L Alkaline Phosphatase 112 (38-126) U/L C-Reactive Protein 6.2 H (<1.0) mg/dL Total Protein 7.3 (6.3-8.2) g/dL Albumin 3.4 L (3.5-5.0) g/dL Disposition Clinical Impression: Hidradenitis suppurativa Disposition: HOME SELF-CARE Condition: Stable Instructions (If sedation given, give patient instructions): Hidradenitis Suppurativa (ED) Additional Instructions: Take Bactrim twice daily for 10 days. Follow-up for upcoming surgery appointment. Please return to the Emergency Department if symptoms worsen or any other concerns. Prescriptions: Sulfamethox-Tmp 800-160Mg [Bactrim Ds] 1 each PO Q12HR #20 tab Is patient prescribed a controlled substance at d/c from ED?: No Referrals: None,Stated [Primary Care Provider] - 1-2 days Time of Disposition: 23:43
[2024-10-02 22:55] LABS: Basophils % (A) 0 %; Eosinophils # (A) 0.2 k/uL (0-0.7); Eosinophils % (A) 3 %; HCT 29.1 % (39.0-53.0); HGB 9.2 gm/dL (13.0-17.5); Hypochromasia Slight; Lymphocytes % (A) 27 %; MCH 24.8 pg (25.0-35.0); MCHC 31.7 g/dL (31.0-37.0); MCV 78.2 fL (80.0-100.0); Mean Platelet Volume 7.1; Monocytes # (A) 0.3 k/uL (0-1.0); Monocytes % (A) 4 %; Neutrophils # (A) 4.6 k/uL (1.3-7.7); Neutrophils % (A) 64 %; Platelet Count 372 k/uL (150-450); RBC 3.72 m/uL (4.30-5.90); RDW 14.8 % (11.5-15.5); WBC 7.2 k/uL (3.8-10.6)
[2024-10-02 23:15] LABS: ALT 10 U/L (4-49); African American GFR (CKD) >90 (>60 ml/min/1.73 sqM); Albumin 3.4 g/dL (3.5-5.0); Anion Gap 9 mmol/L; Blood Urea Nitrogen 12 mg/dL (9-20); C Reactive Protein 6.2 mg/dL (<1.0); Calcium 8.3 mg/dL (8.4-10.2); Carbon Dioxide 25 mmol/L (22-30); Chloride 101 mmol/L (98-107); Glucose 110 mg/dL (74-99); Non-African American GFR(CKD) >90 (>60 ml/min/1.73 sqM); Sodium 135 mmol/L (137-145); Total Bilirubin 0.5 mg/dL (0.2-1.3); Total Protein 7.3 g/dL (6.3-8.2)
[2024-10-02 23:31] LABS: AST 23 U/L (17-59); Alkaline Phosphatase 112 U/L (38-126)
[2024-10-02] MEDS: SULFAMETHOX-TMP 800-160MG 1 EACH TAB PO STA (23:49)
== END 2024-10-02 23:51 | disposition home or self-care (01) ==
LOC: EC 21:55
DX: L73.2 Hidradenitis suppurativa (principal); F17.290 Nicotine dependence, other tobacco product, uncomplicated
CPT/HCPCS: 36415; 80053; 83605; 85025; 86140; 99283